=== PATIENT | male | born 1995 | race Caucasian/White ===

== ENCOUNTER → 2016-11-02 | Outpatient (CLI) | payer BC ==
--- NOTE | 2016-11-02 22:22 | MR ---
EXAMINATION TYPE: MR brain wo con DATE OF EXAM: 11/02/2016 8:38 PM COMPARISON: NONE HISTORY: Headache T1-weighted sagittal, T2, FLAIR, and diffusion axial, and T2 coronal coronal views of the brain are s ubmitted. There is no evidence of acute ischemia. The ventricles, basal cisterns, and sulci overlying the conv exities are consistent with the patient's age. There is no mass effect. Craniocervical junction maintained. Sella turcica has a normal appearance. Orbits have a normal appearance. Changes of mild chronic sinusitis. Nasal septal deviation noted. No evidence of cerebellopontine angle mass. IMPRESSION: 1. No acute intracranial process. 2. Mild chronic sinusitis
== END | disposition home or self-care (01) ==
LOC: RADMRIMAIN 19:57
PROVIDERS: ATTEND Psychiatry & Neurology Pain Medicine
DX: R51 Headache (principal)
CPT/HCPCS: 70551

== ENCOUNTER → 2016-11-17 | Outpatient (CLI) | payer BC ==
[2016-11-17 16:44] LABS: Basophils # (A) 0.1 k/uL (0-0.2); Basophils % (A) 1 %; CH 28.8; CHCM 33.9; Eosinophils # (A) 0.2 k/uL (0-0.7); Eosinophils % (A) 2 %; HCT 45.4 % (39.0-53.0); HDW 2.49; HGB 14.9 gm/dL (13.0-17.5); Luc # (Auto) 0.24; Luc % (Auto) 3; Lymphocytes # (A) 2.9 k/uL (1.0-4.8); Lymphocytes % (A) 32 %; MCH 28.1 pg (25.0-35.0); MCHC 32.8 g/dL (31.0-37.0); MCV 85.4 fL (80.0-100.0); Mean Platelet Volume 7.5; Monocytes # (A) 0.7 k/uL (0-1.0); Monocytes % (A) 7 %; Neutrophils # (A) 5.1 k/uL (1.3-7.7); Neutrophils % (A) 56 %; RBC 5.31 m/uL (4.30-5.90); RDW 12.8 % (11.5-15.5); WBC 9.1 k/uL (3.8-10.6); WBC (Perox) 8.85
[2016-11-17 16:59] LABS: ALT 44 U/L (21-72); AST 24 U/L (17-59); Alkaline Phosphatase 80 U/L (38-126); Anion Gap 14 mmol/L; Blood Urea Nitrogen 16 mg/dL (9-20); Calcium 9.5 mg/dL (8.4-10.2); Carbon Dioxide 26 mmol/L (22-30); Chloride 101 mmol/L (98-107); Glucose 89 mg/dL (74-99); Non-African American GFR(MDRD) >60 (>60 ml/min/1.73 sqM); Potassium 3.8 mmol/L (3.5-5.1); Sodium 141 mmol/L (137-145); Total Bilirubin 0.4 mg/dL (0.2-1.3); Total Protein 7.5 g/dL (6.3-8.2)
[2016-11-17 17:48] LABS: Vitamin B12 414 pg/mL (239-931)
== END ==
LOC: LABWHC1 16:27
PROVIDERS: ATTEND Psychiatry & Neurology Pain Medicine
DX: R53.83 Other fatigue (principal)
CPT/HCPCS: 36415; 80053; 82607; 84207; 84439; 84443; 84481; 85025

== ENCOUNTER → 2016-12-21 | Outpatient (CLI) | payer BC ==
--- NOTE | 2016-12-22 05:34 | CONS ---
DATE OF CONSULTATION: Consultation note for sleep apnea. PCP is Dr. Robles. This is a 21-year-old male patient who is having severe headaches in the morning. He reports that he has been having headaches over the past 8 months throbbing 2 or 3 times a week and this headache lasts all day. On a few instances, he has passed out. He was concerned of having sleep breathing disorder and nocturnal oxygen desaturation contributing to his headache and for that reason he was referred to me. He has undergone MRI and EEG, and both are negative. He is not sure if he snores, although he has been told by his sister that he occasionally snores. No dry mouth. No major hypersomnia or sleepiness during the day. He goes to bed around 9 p.m., wakes up at 4 a.m. in the morning and he works in a local factory. His Gomer score is at 17. He drinks coffee to keep himself alert and awake. He sleeps in a sidewise body position. No sleep paralysis. No hallucinations or cataplexy. PAST MEDICAL HISTORY: Headaches. PAST SURGICAL HISTORY: Negative. Drug allergies are none known. Outpatient medication includes medication for headache probably a nonsteroidal. SOCIAL HISTORY: Nonsmoker. No history of alcoholism. No history of IV drugs. No substance abuse. FAMILY HISTORY: Noncontributory, negative for sleep apnea. REVIEW OF SYSTEMS: Twelve-point review of systems was done and positive findings were all mentioned above in the history of present illness. BP is 139/86, pulse 80, respirations 16, temperature 98.0, saturation 98% on room air. Weight is 273. Height is 70. Neck size 15-1/2 inches. BMI is 38.6. GENERAL APPEARANCE: Calm, comfortable. HEENT: Negative for JVD. There is no goiter or neck masses. There is crowding of posterior pharynx. LUNGS: Clear to auscultation. HEART: Sounds are regular rate and rhythm. Normal S1, S2. No S3 or S4. No murmurs. ABDOMEN: Soft, nontender, no organomegaly. EXTREMITIES: No edema, no cyanosis or clubbing. IMPRESSION: 1. Daytime headache, rule out obstructive sleep apnea/nocturnal oxygen desaturation. 2. Chronic fatigue and sleepiness with an Gomer score of 17. 3. Snoring. PLAN: 1. Proceed with a home study. 2. Make further recommendations based on results of the sleep study.
== END ==
LOC: SLEEP 15:08
PROVIDERS: ATTEND Internal Medicine Critical Care Medicine
DX: G47.10 Hypersomnia, unspecified (principal)
CPT/HCPCS: 99211

== ENCOUNTER 2022-04-08 16:18 | Emergency (ER) | payer BC, OTHER ==
[2022-04-08 16:45] VITALS: BP 160/95; PULSE 96; RESP 18; TEMP 98.3
[2022-04-08] MEDS ORDERED: DIPH,PERTUS(ACELL)TETVAC-LF 0.5 ML VIAL IM ONE (17:02)
[2022-04-08] MEDS ORDERED: TOPICAL SKIN ADHESIVE 1 EACH AMP TOPICAL ONE (17:08)
--- NOTE | 2022-04-08 17:15 | ED ---
Wound/Laceration HPI - General Chief Complaint: Wound/Laceration Stated Complaint: thumb laceration Time Seen by Provider: 04/08/22 17:00 Source: patient, RN notes reviewed, old records reviewed Mode of arrival: ambulatory Limitations: no limitations - History of Present Illness Initial Comments: 26-year-old well-appearing male presents to the emergency room with complaints of a laceration to his left thumb while using a knife to cut cheese and bologna. He does have full range of motion . Patient states that he is unsure of his tetanus shot is up-to-date. He has no other injuries. -: hour(s) (1) Extremity Location: Left: Hand (thumb) Patient Tetanus UTD: No Context: accidental Associated Symptoms: none Treatments Prior to Arrival: bandage - Related Data Allergies Allergy/AdvReac Type Severity Reaction Status Date / Time No Known Allergies Allergy Verified 04/08/22 16:45 Review of Systems ROS Statement: Those systems with pertinent positive or pertinent negative responses have been documented in the HPI. ROS Other: All systems not noted in ROS Statement are negative. Past Medical History Past Medical History: No Reported History History of Any Multi-Drug Resistant Organisms: None Reported Past Surgical History: Orthopedic Surgery Additional Past Surgical History / Comment(s): left knee Past Psychological History: No Psychological Hx Reported Smoking Status: Never smoker Past Alcohol Use History: Rare Past Drug Use History: None Reported General Exam Limitations: no limitations General appearance: alert, in no apparent distress Head exam: Present: atraumatic Eye exam: Present: normal appearance. Absent: scleral icterus, conjunctival injection Respiratory exam: Absent: respiratory distress, accessory muscle use Cardiovascular Exam: Present: regular rate Left Hand Wrist exam: Present: laceration (left thumb palmar surface approx 3cm) Neuro motor exam: Present: thumb opposition intact, thumb IP flexion intact, thumb adduction intact, fingers 2-5 abduction intact Neurosensory exam: Present: radial nerve intact, ulnar nerve intact, median nerve intact Vascular: Present: normal capillary refill, radial pulse. Absent: vascular compromise Neurological exam: Present: alert, oriented X3 Psychiatric exam: Present: normal affect, normal mood Skin exam: Present: warm, dry, normal color. Absent: cyanosis, diaphoretic, pallor Course Vital Signs 04/08/22 16:40 Temperature 98.3 F Pulse Rate 96 Respiratory 18 Rate Blood Pressure 160/95 O2 Sat by Pulse 99 Oximetry Medical Decision Making - Medical Decision Making Patient presents with laceration to left thumb less than one hour prior to arrival. Sustained laceration with a sharp knife while cutting food. Has full range of motion. Wound was irrigated with saline. Patient requesting surgical glue repair rather than sutures. Wound was approximated with surgical glue and steri-strips. Patient was directed to keep the wound clean and dry and not to put any lotions or ointments on the area. Return to emergency room with a new or concerning symptoms ro signs of infection. Disposition Clinical Impression: Laceration Disposition: HOME SELF-CARE Condition: Good Instructions (If sedation given, give patient instructions): Laceration (ED), Skin Adhesive Care (ED) Additional Instructions: Limit movement of the thumb for the next 5 days to prevent reopening the wound. Do not put any kind of ointment, cream, or lotion over the area. This can make the adhesive fall off too soon. After the first 24 to 48 hours, wash around the cut with clean water 2 times a day. Do not use hydrogen peroxide or alcohol, which can slow healing. Put on a new bandage after cleaning the cut or if the bandage gets wet or dirty. Leave the skin adhesive on your skin until it falls off on its own. This may take 5 to 10 days. Do not scratch, rub, or pick at the adhesive. Do not put the sticky part of a bandage directly on the adhesive. Avoid any activity that could cause your cut to reopen. Watch for signs of infection including increased redness, pain or drainage. Return to the emergency room with any new or concerning symptoms. Is patient prescribed a controlled substance at d/c from ED?: No Referrals: Allen Robles MD [Primary Care Provider] - 1-2 days Time of Disposition: 17:26
== END 2022-04-08 17:56 | disposition home or self-care (01) ==
LOC: EC 16:18
DX: S61.012A Laceration without foreign body of left thumb without damage to nail, initial encounter (principal); W26.0XXA Contact with knife, initial encounter; Y93.G1 Activity, food preparation and clean up
CPT/HCPCS: 90471; 90715; 99282

== ENCOUNTER → 2022-06-25 | Outpatient (CLI) | payer OTHER ==
[2022-06-25 10:44] LABS: Basophils # (A) 0.03 X 10*3/uL (0.00-0.10); Basophils % (A) 0.4 %; Eosinophils % (A) 2.7 %; HCT 45.1 % (39.6-50.0); HGB 15.4 g/dL (13.0-17.0); Immature Grans, Automated 0.4 %; Lymphocytes # (A) 2.48 X 10*3/uL (0.90-5.00); MCH 28.7 pg (27.0-32.0); MCHC 34.1 g/dL (32.0-37.0); MCV 84.1 fL (80.0-97.0); Mean Platelet Volume 9.8 fL (9.5-12.2); Monocytes # (A) 0.82 X 10*3/uL (0.20-1.00); Monocytes % (A) 11.2 %; NRBC Per 100 WBC 0 /100 WBCS (0.0-0.0); Neutrophils # (A) 3.73 X 10*3/uL (1.80-7.70); Neutrophils % (A) 51.3 %; Platelet Count 296 X 10*3/uL (140-440); RBC 5.36 X 10*6/uL (4.40-5.60); RDW 12.4 % (11.5-14.5); WBC 7.29 X 10*3/uL (4.50-10.00)
[2022-06-25 11:30] LABS: ALT 58 U/L (10-49); AST 34 U/L (14-35); Albumin 4.7 g/dL (3.8-4.9); Albumin/Globulin Ratio 1.62 (1.60-3.17); Alkaline Phosphatase 86 U/L (41-126); BUN/Creat Ratio 10.87 Ratio (12.00-20.00); Blood Urea Nitrogen 11.2 mg/dL (9.0-27.0); Calcium 9.5 mg/dL (8.7-10.3); Carbon Dioxide 24.8 mmol/L (20.0-27.5); Chloride 102 mmol/L (96-109); Chol/HDL Ratio 3.51 Ratio; Globulin 2.9 g/dL (1.6-3.3); Glucose 110 mg/dL (70-110); LDL Cholesterol,Calculated 79.9 mg/dL (0.0-131.0); Non-African American GFR(CKD) 98.4 (60.0-200.0); Potassium 4.3 mmol/L (3.5-5.5); Sodium 139 mmol/L (135-145); Total Protein 7.6 g/dL (6.2-8.2); VLDL Calculation 12.36 mg/dL (5.00-40.00)
== END | disposition home or self-care (01) ==
LOC: LABWHC1 07:41
PROVIDERS: ATTEND Internal Medicine
DX: Z00.00 Encounter for general adult medical examination without abnormal findings (principal); G43.909 Migraine, unspecified, not intractable, without status migrainosus
CPT/HCPCS: 36415; 80053; 80061; 82607; 82746; 83735; 84439; 84443; 85025

== ENCOUNTER → 2022-07-08 | Outpatient (CLI) | payer OTHER ==
[2022-07-08 15:29] LABS: T4, Free (Free Thyroxine) 1.17 ng/dL (0.800-1.800)
[2022-07-08 15:30] LABS: % Iron Saturation 21.49 (15.00-50.00); African American GFR (CKD) 133.3 (60.0-200.0); Albumin 4.5 g/dL (3.8-4.9); Albumin/Globulin Ratio 1.6 (1.60-3.17); BUN/Creat Ratio 13.15 Ratio (12.00-20.00); Blood Urea Nitrogen 11.9 mg/dL (9.0-27.0); Calcium 9.4 mg/dL (8.7-10.3); Carbon Dioxide 24.6 mmol/L (20.0-27.5); Globulin 2.8 g/dL (1.6-3.3); Non-African American GFR(CKD) 115.1 (60.0-200.0); Potassium 4.3 mmol/L (3.5-5.5); Total Bilirubin 0.4 mg/dL (0.30-1.20); Total Protein 7.3 g/dL (6.2-8.2)
[2022-07-08 16:17] LABS: Hepatitis A Antibody IgM Nonreactive (Nonreactive); Hepatitis B Core IgM Nonreactive (Nonreactive); Hepatitis B Surface Antigen Nonreactive (Nonreactive); Hepatitis C IgG Antibody Nonreactive (Nonreactive); Thyroid Peroxidase Antibodies 9.2 U/mL (0.0-33.0)
== END | disposition home or self-care (01) ==
LOC: LABWHC1 09:03
PROVIDERS: ATTEND Internal Medicine
DX: E05.90 Thyrotoxicosis, unspecified without thyrotoxic crisis or storm (principal)
CPT/HCPCS: 36415; 80053; 80074; 82728; 83540; 83550; 84432; 84439; 84443; 84445; 86038; 86376

== ENCOUNTER → 2022-09-28 | Outpatient (CLI) | payer OTHER ==
--- NOTE | 2022-09-28 16:14 | XR ---
EXAMINATION TYPE: XR chest 2V DATE OF EXAM: 09/28/2022 COMPARISON: None HISTORY: 27-year-old male J1 0.1, cough and shortness of breath TECHNIQUE: Frontal and lateral views FINDINGS: The cardiomediastinal silhouette, aorta, and pulmonary vasculature are within normal limits. Lungs an d pleural spaces are clear. IMPRESSION: No acute cardiopulmonary process.
== END | disposition home or self-care (01) ==
LOC: RADXRMAIN 15:17
PROVIDERS: ATTEND Internal Medicine
DX: J10.1 Influenza due to other identified influenza virus with other respiratory manifestations (principal)
CPT/HCPCS: 71046

== ENCOUNTER → 2022-12-11 | Outpatient (CLI) | payer OTHER ==
[2022-12-11 11:16] LABS: Basophils # (A) 0.04 X 10*3/uL (0.00-0.10); Basophils % (A) 0.5 %; Eosinophils % (A) 1.3 %; HCT 48.2 % (39.6-50.0); HGB 15.4 g/dL (13.0-17.0); Immature Grans, Automated 0.1 %; Lymphocytes # (A) 2.35 X 10*3/uL (0.90-5.00); Lymphocytes % (A) 29.4 %; MCH 27.9 pg (27.0-32.0); MCV 87.5 fL (80.0-97.0); Mean Platelet Volume 10.1 fL (9.5-12.2); Monocytes # (A) 0.98 X 10*3/uL (0.20-1.00); Monocytes % (A) 12.3 %; NRBC Per 100 WBC 0 /100 WBCS (0.0-0.0); Neutrophils # (A) 4.51 X 10*3/uL (1.80-7.70); Neutrophils % (A) 56.4 %; Platelet Count 268 X 10*3/uL (140-440); RBC 5.51 X 10*6/uL (4.40-5.60); RDW 12.8 % (11.5-14.5); WBC 7.99 X 10*3/uL (4.50-10.00)
[2022-12-11 11:36] LABS: ALT 47 U/L (10-49); AST 30 U/L (14-35); African American GFR (CKD) 121.4 (60.0-200.0); Albumin 4.7 g/dL (3.8-4.9); Albumin/Globulin Ratio 1.64 (1.60-3.17); Alkaline Phosphatase 90 U/L (41-126); BUN/Creat Ratio 10.63 Ratio (12.00-20.00); Blood Urea Nitrogen 10.4 mg/dL (9.0-27.0); Calcium 9.8 mg/dL (8.7-10.3); Carbon Dioxide 25.6 mmol/L (20.0-27.5); Chloride 103 mmol/L (96-109); Chol/HDL Ratio 3.28 Ratio; Globulin 2.8 g/dL (1.6-3.3); Glucose 109 mg/dL (70-110); LDL Cholesterol,Calculated 78.6 mg/dL (0.0-131.0); Non-African American GFR(CKD) 104.8 (60.0-200.0); Potassium 4.5 mmol/L (3.5-5.5); Sodium 142 mmol/L (135-145); Total Protein 7.5 g/dL (6.2-8.2); Uric Acid 8.1 mg/dL (3.7-8.7); VLDL Calculation 13.84 mg/dL (5.00-40.00)
== END | disposition home or self-care (01) ==
LOC: LABWHC1 08:22
PROVIDERS: ATTEND Internal Medicine
DX: Z00.00 Encounter for general adult medical examination without abnormal findings (principal); E05.90 Thyrotoxicosis, unspecified without thyrotoxic crisis or storm; M10.9 Gout, unspecified
CPT/HCPCS: 36415; 80053; 80061; 84439; 84443; 84550; 85025

== ENCOUNTER → 2023-01-13 | Outpatient (CLI) | payer OTHER ==
--- NOTE | 2023-01-13 18:10 | US ---
EXAMINATION TYPE: US thyroid st tissue head/neck DATE OF EXAM: 01/13/2023 COMPARISON: NONE CLINICAL INDICATION: Male, 27 years old with history of E05.90 SUBCLINICAL HYPERTHYROIDISM; Hyperthyr oidism. GLAND SIZE: Right Lobe: 5.3 x 2.3 x 1.7 cm Overall Parenchyma: homogenous Left Lobe: 4.8 x 1.4 x 1.3 cm Overall Parenchyma: homogeneous Isthmus Thickness: 0.31 cm NODULES RIGHT: # of nodules measured on right: 0 LEFT: # of nodules measured on left: 0 ISTHMUS: # of nodules measured in the isthmus: 0 Bilateral neck scanned: Ovoid hypoechoic area seen in the right neck to the level of the thyroid glan d measuring 1.8 x 2.5 x 0.6 cm. No internal color flow identified. *Unable to visualize parathyroid tissue. IMPRESSION: 1. No discrete thyroid nodule. 2. 2.5 cm hypoechoic lesion in the right neck. This may be cystic with some septations. Etiologies in clude branchial cleft cyst versus thyroglossal duct cyst versus lymph node versus other. Further eval uation with CT neck IV contrast is recommended.
== END | disposition home or self-care (01) ==
LOC: RADUSWWP 16:29
PROVIDERS: ATTEND Internal Medicine
DX: E05.90 Thyrotoxicosis, unspecified without thyrotoxic crisis or storm (principal)
CPT/HCPCS: 76536

== ENCOUNTER → 2023-01-21 | Outpatient (CLI) | payer OTHER ==
--- NOTE | 2023-01-21 17:01 | CT ---
EXAMINATION TYPE: CT soft tissue neck w con DATE OF EXAM: 01/21/2023 COMPARISON: Correlation THYROID ultrasound 01/13/2023 HISTORY: 27-year-old male R22.1 abnormal findings on thyroid ultrasound last week TECHNIQUE: Contiguous axial scanning of the soft tissues of the neck performed with IV Contrast, lauryn ent injected with 100 cc mL of Isovue 300. Coronal/sagittal reconstructions performed. CT DLP: 656.0 mGycm Automated exposure control for dose reduction was used. FINDINGS: Homogeneous enhancement of the thyroid gland. The submandibular and parotid glands appear satisfactory. The visualized intracranial structures, orbits and globes, paranasal sinuses and mastoid air cells ar e clear. Left nasal septal deviation. There is mild adenoidal soft tissue hypertrophy. Moderate bilateral palatine tonsillar hypertrophy. Nasopharynx and oropharynx are otherwise clear. Epiglottis and prevertebral soft tissues are satisfactory. There is asymmetric soft tissue effacement of the left piriform sinus, axial image 45 for which direc t visualization is recommended. Glottic and glottic structures as well as the tracheal column appears clear. Some hazy density sole blacker iorly probably dependent atelectasis. A borderline enlarged right patient to wait lymph node measuring 2.0 x 1.5 x 0.8 cm, axial image 53 a nd coronal image 30. Additional scattered nonenlarged cervical lymph nodes are present on both sides of the neck, next lar gest measuring 1.9 x 1.0 x 0.6 cm on the right, image 59. Nauseous destructive process. IMPRESSION: 1. MODERATE BILATERAL PALATINE TONSILLAR HYPERTROPHY AND MILD HYPERTROPHY OF THE ADENOID SOFT TISSUES . 2. SOME ASYMMETRIC SOFT TISSUE EFFACING THE LEFT PIRIFORM SINUS, AXIAL IMAGE 45. DIRECT VISUALIZATION RECOMMENDED TO EXCLUDE A MUCOSAL LESION HERE. 3. BORDERLINE ENLARGED RIGHT UPPER CERVICAL LYMPH NODES MEASURING UP TO 1.5 CM SHORT AXIS. ADDITIONAL SCATTERED PROMINENT BUT NONENLARGED LYMPH NODES ARE PRESENT ON BOTH SIDES OF THE NECK. PROBABLY REAC TIVE/POST INFLAMMATORY. THESE CAN BE FOLLOWED CLINICALLY.
== END | disposition home or self-care (01) ==
LOC: RADCTMAIN 15:19
PROVIDERS: ATTEND Internal Medicine
DX: J35.3 Hypertrophy of tonsils with hypertrophy of adenoids (principal); J34.89 Other specified disorders of nose and nasal sinuses; R59.0 Localized enlarged lymph nodes
CPT/HCPCS: 70491; Q9967

== ENCOUNTER → 2023-01-26 | Outpatient (CLI) | payer OTHER ==
--- NOTE | 2023-01-26 15:31 | US ---
EXAMINATION TYPE: US scrotum with doppler. Grayscale and color Doppler Duplex imaging performed of se bond scrotum. DATE OF EXAM: 01/26/2023 COMPARISON: NONE CLINICAL INDICATION: Male, 27 years old with history of L72.3 SEBACEOUS CYST; Patient felt a lump inf erior/posterior right testicle x 1 week ago. EXAM MEASUREMENTS: TESTICLES: Right Testicle: 4.1 x 3.3 x 2.6 cm Left Testicle: 4.3 x 2.4 x 2.3 cm EPIDIDYMIS HEAD: Right Epididymis: 1.0 x 1.1 x 0.8 cm Left Epididymis: 1.3 x 1.1 x 1.0 cm Doppler performed to assess for testicular vascularity; good bilateral color flow and waveforms are s een. There is no evidence of testicular torsion. Presence of hydroceles: no Presence of varicoceles: no Right epididymal cyst = 0.3 x 0.4 x 0.3 cm. Multiple cysts seen in left epididymal head with largest = 0.8 x 0.6 x 0.6 cm Area of concern scanned, hypoechoic area with posterior enhancement seen within skin = 0.7 x 0.7 x 0. 6 cm IMPRESSION: 1. Area of concern scanned just deep to the skin which could represent complex fluid collection in se bond posterior acoustic enhancement. Clinical correlation advised. 2. No intratesticular mass visualized.
== END | disposition home or self-care (01) ==
LOC: RADUSWWP 14:38
PROVIDERS: ATTEND Internal Medicine
DX: L72.3 Sebaceous cyst (principal)
CPT/HCPCS: 76870; 93975

== ENCOUNTER → 2023-04-28 | Outpatient (CLI) | payer OTHER | END | disposition home or self-care (01) | LOC: LABWHC1 07:51 | PROVIDERS: ATTEND Internal Medicine | DX: E05.90 Thyrotoxicosis, unspecified without thyrotoxic crisis or storm (principal) | CPT/HCPCS: 36415; 84443; 84481 ==

== ENCOUNTER → 2023-09-09 | Outpatient (CLI) | payer OTHER ==
[2023-09-09 19:44] LABS: ALT 38 U/L (10-49); AST 23 U/L (14-35); Albumin 4.3 g/dL (3.8-4.9); Albumin/Globulin Ratio 1.59 Ratio (1.60-3.17); Alkaline Phosphatase 91 U/L (41-126); Blood Urea Nitrogen 13.9 mg/dL (9.0-27.0); Calcium 9.5 mg/dL (8.7-10.3); Carbon Dioxide 21.3 mmol/L (21.6-31.8); Chloride 106 mmol/L (96-109); Globulin 2.7 g/dL (1.6-3.3); Glucose 99 mg/dL (70-110); Potassium 4.3 mmol/L (3.5-5.5); Sodium 138 mmol/L (135-145); T4, Free (Free Thyroxine) 1.05 ng/dL (0.80-1.80); Total Bilirubin 0.4 mg/dL (0.3-1.2)
== END | disposition home or self-care (01) ==
LOC: LABWHC1 12:50
PROVIDERS: ATTEND Internal Medicine
DX: E05.90 Thyrotoxicosis, unspecified without thyrotoxic crisis or storm (principal)
CPT/HCPCS: 36415; 80053; 84439; 84443; 84481

== ENCOUNTER → 2024-11-20 | Outpatient (CLI) | payer OTHER ==
[2024-11-20 14:52] LABS: Basophils # (A) 0.04 X 10*3/uL (0.00-0.10); Basophils % (A) 0.7 %; Eosinophils # (A) 0.15 X 10*3/uL (0.04-0.35); Eosinophils % (A) 2.6 %; HCT 46.2 % (39.6-50.0); HGB 15.3 g/dL (13.0-17.0); Lymphocytes # (A) 1.95 X 10*3/uL (0.90-5.00); Lymphocytes % (A) 33.3 %; MCHC 33.1 g/dL (32.0-37.0); MCV 87.7 FL (80.0-97.0); Mean Platelet Volume 10.3 FL (9.5-12.2); Monocytes # (A) 0.67 X 10*3/uL (0.20-1.00); Monocytes % (A) 11.5 %; NRBC Per 100 WBC 0 X 10*3/uL (0.00-0.01); Neutrophils # (A) 3.02 X 10*3/uL (1.80-7.70); Neutrophils % (A) 51.6 %; Platelet Count 242 X 10*3/uL (140-440); RBC 5.27 X 10*6/uL (4.40-5.60); RDW 13.2 % (11.5-14.5); WBC 5.85 X 10*3/uL (4.50-10.00)
[2024-11-20 15:20] LABS: ALT 42 U/L (10-49); AST 27 U/L (14-35); Albumin 4.4 g/dL (3.8-4.9); Albumin/Globulin Ratio 1.83 Ratio (1.60-3.17); Alkaline Phosphatase 98 U/L (41-126); Blood Urea Nitrogen 10.7 mg/dL (9.0-27.0); Calcium 9.5 mg/dL (8.7-10.3); Carbon Dioxide 22.8 mmol/L (21.6-31.8); Chloride 107 mmol/L (96-109); Chol/HDL Ratio 3.32 Ratio; Globulin 2.4 g/dL (1.6-3.3); Glucose 113 mg/dL (70-110); Potassium 4.4 mmol/L (3.5-5.5); Sodium 142 mmol/L (135-145); T4, Free (Free Thyroxine) 1.27 ng/dL (0.80-1.80); Total Bilirubin 0.4 mg/dL (0.3-1.2); Total Protein 6.8 g/dL (6.2-8.2); Uric Acid 8.4 mg/dL (3.7-8.7); VLDL Calculation 15.76 mg/dL (5.00-40.00)
== END | disposition home or self-care (01) ==
LOC: LABWHC1 07:39
PROVIDERS: ATTEND Internal Medicine
DX: Z00.00 Encounter for general adult medical examination without abnormal findings (principal); E05.90 Thyrotoxicosis, unspecified without thyrotoxic crisis or storm; M10.9 Gout, unspecified
CPT/HCPCS: 36415; 80053; 80061; 83036; 84439; 84443; 84550; 85025